=== PATIENT | male | born 1955 | race Caucasian/White ===

== ENCOUNTER → 2021-03-08 16:44 | Outpatient (CLI) | payer OTHER, SELFPAY ==
--- NOTE | ~2021-03-08 | XR_ITS ---
XR wrist LT min 3V DATE: 03/08/2021 17:05 INDICATION: Left wrist pain TECHNIQUE: 4 views COMPARISON: None FINDINGS: No fracture or dislocation, periosteal reaction or bone destruction. Joint spaces are prese rved. No erosive change or chondrocalcinosis. IMPRESSION: Negative Reviewed, dictated and finalized at location A. [facility] IMPRESSION: Negative
== END ==
PROVIDERS: PCP Family Medicine; Visit Provider Nurse Practitioner Family
DX: M25.532 Pain in left wrist (principal)
CPT/HCPCS: 73110

== ENCOUNTER 2021-03-25 11:07 | Outpatient (CLI) | payer OTHER, SELFPAY | END 2021-03-25 11:08 | disposition home or self-care (01) | LOC: ANHAUDASC 11:08 | PROVIDERS: PCP Nurse Practitioner Family; Visit Provider Nurse Practitioner Family | DX: H93.19 Tinnitus, unspecified ear (principal); H90.3 Sensorineural hearing loss, bilateral | CPT/HCPCS: 92557; 92567 ==

== ENCOUNTER 2021-04-25 09:00 | Outpatient (RCR) | payer OTHER, SELFPAY | END 2021-07-02 23:59 | disposition home or self-care (01) | LOC: ANHAUDASC 09:00 | PROVIDERS: PCP Nurse Practitioner Family; Visit Provider Nurse Practitioner Family | DX: Z46.1 Encounter for fitting and adjustment of hearing aid (principal) | CPT/HCPCS: 99199; V5261 ==

== ENCOUNTER 2022-08-14 08:35 | Outpatient (CLI) | payer OTHER, SELFPAY ==
[2022-08-14 09:03] LABS: Basophils Percent Auto 0.7 % (0.2-1.2); Eosinophils Absolute Auto 0.2 K/mm3 (0-0.3); Eosinophils Percent Auto 2.8 % (0-4.4); Hematocrit 42.6 % (42.0-52.0); Hemoglobin 13.6 g/dL (14.0-18.0); Immature Granulocyte Absolute 0.01 K/mm3 (0.00-0.031); Immature Granulocyte Percent A 0.2 % (0-0.5); Lymphocytes Absolute Auto 1.36 K/mm3 (0.9-3.2); Lymphocytes Percent Auto 22.7 % (18.3-44.2); Mean Corpuscular HGB Conc 31.9 g/dl (32-36); Mean Corpuscular Hemoglobin 29.2 pg (26-34); Mean Corpuscular Volume 91.6 fl (80-100); Mean Platelet Volume 9.3 fl (7.4-10.4); Monocytes Absolute Auto 0.7 K/mm3 (0.1-0.6); Neutrophils Absolute Auto 3.7 K/mm3 (1.3-6.7); Neutrophils Percent Auto 61.6 % (45.5-73.1); Platelet Count Result 264 k/mm3 (150-375); Red Blood Count 4.65 M/mm3 (4.6-6.20); Red Cell Distribution Width 13.1 % (11.5-14.5)
[2022-08-14 09:23] LABS: Alanine Aminotransferase 29 U/L (6-50); Albumin Level 4.5 g/dL (3.5-5.1); Alkaline Phosphatase 68 U/L (38-126); Aspartate Amino Transferase 30 U/L (17-59); Bilirubin,Total 0.6 mg/dL (0.2-1.3); Cholesterol 103 mg/dL (0-200); HDL Direct 32 mg/dL; Triglycerides 83 mg/dL (<150)
[2022-08-14 09:36] LABS: LDL Cholesterol Direct 48 mg/dL
== END 2022-08-14 08:36 | disposition home or self-care (01) ==
LOC: ANHLAB 08:37
PROVIDERS: PCP Nurse Practitioner Family; Visit Provider Nurse Practitioner Family
DX: G25.81 Restless legs syndrome (principal); E78.5 Hyperlipidemia, unspecified
CPT/HCPCS: 36415; 80061; 80076; 85025

== ENCOUNTER 2023-01-16 10:49 | Outpatient (CLI) | payer OTHER, SELFPAY ==
[2023-01-16 11:16] LABS: Appearance Urine Clear (Clear); Bilirubin Urine Negative (Negative); Blood Urine Negative (Negative); Color Urine Yellow (Yellow); Glucose Urine UA Negative (Negative); Ketones Urine Negative (Negative); Leukocyte Esterase Ur Negative LEU/UL (NEGATIVE); Nitrate Urine Negative (Negative); Protein Urine Negative (Negative); Specific Grav Ur 1.018 (1.001-1.035); Urobilinogen Urine 0.2 mg/dL (<2.0)
[2023-01-16 11:32] LABS: Basophils Percent Auto 0.6 % (0.2-1.2); Eosinophils Absolute Auto 0.1 K/mm3 (0-0.3); Eosinophils Percent Auto 1.7 % (0-4.4); Hemoglobin 11.3 g/dL (14.0-18.0); Immature Granulocyte Absolute 0.02 K/mm3 (0.00-0.031); Immature Granulocyte Percent A 0.3 % (0-0.5); Lymphocytes Absolute Auto 1.24 K/mm3 (0.9-3.2); Lymphocytes Percent Auto 17.5 % (18.3-44.2); Mean Corpuscular HGB Conc 29.7 g/dl (32-36); Mean Corpuscular Hemoglobin 25.7 pg (26-34); Mean Corpuscular Volume 86.4 fl (80-100); Mean Platelet Volume 9.2 fl (7.4-10.4); Monocytes Absolute Auto 0.7 K/mm3 (0.1-0.6); Monocytes Percent Auto 10.4 % (2.6-8.5); Neutrophils Absolute Auto 4.9 K/mm3 (1.3-6.7); Neutrophils Percent Auto 69.5 % (45.5-73.1); Platelet Count Result 293 k/mm3 (150-375); Red Cell Distribution Width 14.6 % (11.5-14.5); White Blood Count 7.1 K/mm3 (4.5-10.0)
[2023-01-16 11:41] LABS: Add Urine Microscopic? NO
[2023-01-16 11:45] LABS: Alanine Aminotransferase 38 U/L (6-50); Albumin Level 4.3 g/dL (3.5-5.1); Alkaline Phosphatase 74 U/L (38-126); Anion Gap 9 mmol/L (8-16); Aspartate Amino Transferase 32 U/L (17-59); Bilirubin,Total 0.4 mg/dL (0.2-1.3); Blood Urea Nitrogen 23 mg/dL (9-20); Carbon Dioxide 25 mmol/L (22-30); Chloride 105 mmol/L (98-107); Cholesterol 112 mg/dL (0-200); Estimated Glomerular Filt Rate > 60; Glucose 106 mg/dL (65-110); HDL Direct 33 mg/dL; Potassium 4.3 mmol/L (3.4-5.0); Sodium 139 mmol/L (137-145); Triglycerides 93 mg/dL (<150)
[2023-01-16 11:56] LABS: LDL Cholesterol Direct 62 mg/dL
[2023-01-16 12:06] LABS: Iron 44 ug/dL (49-181)
[2023-01-16 12:16] LABS: Percent Iron Saturation 10 % (20-50)
[2023-01-16 12:42] LABS: Ferritin 7.34 ng/mL (11.1-264)
[2023-01-16 12:49] LABS: Folic Acid 18.5 ng/mL (2.76->20)
== END 2023-01-16 10:50 | disposition home or self-care (01) ==
LOC: ANHLAB 10:51
PROVIDERS: PCP Nurse Practitioner Family; Visit Provider Nurse Practitioner Family
DX: D64.9 Anemia, unspecified (principal); E78.5 Hyperlipidemia, unspecified; Z12.5 Encounter for screening for malignant neoplasm of prostate
CPT/HCPCS: 36415; 80048; 80061; 80076; 81003; 82607; 82728; 82746; 83540; 83550; 84153; 84443; 85025; G0103

== ENCOUNTER 2023-02-13 01:31 | Day surgery (SDC) | payer OTHER, SELFPAY ==
[2023-02-04 11:44] VITALS: BMI 26.6
--- NOTE | 2023-02-12 18:22 | PM.HPGS ---
History of Present Illness History of Present Illness Consent: Risks, benefits, and alternatives have been discussed and questions answered. Patient agrees to proceed with procedure. Chief complaint: HX colon polyps, iron deficiency anemia Narrative: uLis E Yu III is a 68 year old male ? who was referred to office per Isaiah Saucedo for evaluation of iron deficiency anemia noted on routine labs.? Hemoglobin in August 2022 to be slightly low at 13.6. Labs along with iron studies were rechecked this January. hemoglobin trending downward from 13.6-> 11.3. Hct low at 38. MCV WNLs. Ferritin low at 7.34, iron saturations low at 10%, iron level low at 44. He also has had polyps removed on a couple of occasions, most recently 6 years ago. Review of Systems Review of Systems: All systems reviewed & are unremarkable except as noted in HPI and below PMFSH Past Medical History Medical History Anemia BMI 26.0-26.9,adult BMI 27.0-27.9,adult Colon cancer screening Cologuard screening on 08/20/2022 was negative with recheck in 3 years. Encounter to establish care Hard of hearing History of colon polyps Hyperlipidemia CAMACHO (iron deficiency anemia) Indigestion Nocturia Skin lesion of scalp SLAC (scapholunate advanced collapse) of wrist Tinnitus Wellness examination Wrist pain, left Surgical History Surgical History History of hernia repair 2007 History of resection of large bowel 2014- 12 inches removed Social History Social History Smoking status: Never smoker Alcohol intake: current Drinks per week: 1 Substance use: never Substance use type: does not use Living arrangements: with family Occupation/Education: retired Gender identity (if verbalized by the patient): Male Sexual Orientation (if Verbalized by the Patient): Straight or Heterosexual Spiritual care concerns: No Agree to blood products: Yes Meds Home Medications and Allergies Home Medications Medication Instructions Recorded Confirmed Type multivitamin 1 tablet PO DAILY 03/08/21 02/13/23 History omeprazole 20 mg capsule,delayed 20 mg PO DAILY #90 caps 08/06/22 02/13/23 Rx release atorvastatin 10 mg tablet 10 mg PO DAILY #90 tabs 08/29/22 02/13/23 Rx pramipexole 0.5 mg tablet (Mirapex) 0.5 mg PO QHS #30 tabs 10/06/22 02/13/23 Rx Allergies Allergy/AdvReac Type Severity Reaction Status Date / Time No Known Allergies Allergy Verified 02/13/23 08:47 Exam Const: General: alert Orientation/consciousness: patient oriented x3 Resp: Auscultation: clear to auscultation bilaterally Cardio: Rhythm: regular rhythm GI: GI Palp: Yes Soft to palpation and No Tenderness to palpation present (GI) Neuro: General: patient oriented x3 Assessment and Plan Assessment and plan (1) CAMACHO (iron deficiency anemia): Code(s): D50.9 - Iron deficiency anemia, unspecified Status: Acute Assessment and Plan: EGD with possible biopsy or dilatation or cautery.Colonoscopy with possible biopsy or polypectomy or cautery or injection of substances.
[2023-02-13 08:49] VITALS: BP 129/89; PULSE 88; RESP 18; TEMP 36.1; O2SAT 100
[2023-02-13] MEDS: LACTATED RINGERS 1,000 ML 150 ML IV CONT (08:52)
--- NOTE | 2023-02-13 09:37 | WPDANESEPPF ---
Anes - Initial Pre Proc Eval Procedure: Operation Date: 02/13/23 10:00 Proposed Procedures p Esophagogastroduodenoscopy & Colonoscopy - Bruno Vasquez MD Date/Time: 02/13/23 09:37 Surgeon: Bruno Vasquez MD Pre Op Diagnosis: HX colon polyps, iron deficiency anemia Patient Data Age: 68 Gender: M Height: 1.68 m Weight: 69.7 kg Last Vital Signs Temp 97 F L 02/13/23 08:49 Pulse 88 02/13/23 08:49 Resp 18 02/13/23 08:49 BP 129/89 02/13/23 08:49 Pulse Ox 100 02/13/23 08:49 O2 Del Method Room Air 02/13/23 08:49 Allergies Allergy/AdvReac Type Severity Reaction Status Date / Time No Known Allergies Allergy Verified 02/13/23 08:47 Home Medications Medication Instructions Recorded Confirmed Type multivitamin 1 tablet PO DAILY 03/08/21 02/13/23 History omeprazole 20 mg capsule,delayed 20 mg PO DAILY #90 caps 08/06/22 02/13/23 Rx release atorvastatin 10 mg tablet 10 mg PO DAILY #90 tabs 08/29/22 02/13/23 Rx pramipexole 0.5 mg tablet (Mirapex) 0.5 mg PO QHS #30 tabs 10/06/22 02/13/23 Rx Patient hx anesthesia problems: none Family hx anesthesia problems: none Results Review: All pre-operative results and documents have been reviewed as part of the pre-operative evaluation. [facility] Past Medical History Medical History Anemia BMI 26.0-26.9,adult BMI 27.0-27.9,adult Colon cancer screening Cologuard screening on 08/20/2022 was negative with recheck in 3 years. Encounter to establish care Hard of hearing History of colon polyps Hyperlipidemia CAMACHO (iron deficiency anemia) Indigestion Nocturia Skin lesion of scalp SLAC (scapholunate advanced collapse) of wrist Tinnitus Wellness examination Wrist pain, left Surgical History Surgical History History of hernia repair 2008 History of resection of large bowel 2014- 12 inches removed Social History Social History Smoking status: Never smoker Alcohol intake: current Drinks per week: 1 Substance use: never Substance use type: does not use Living arrangements: with family Occupation/Education: retired Gender identity (if verbalized by the patient): Male Sexual Orientation (if Verbalized by the Patient): Straight or Heterosexual Spiritual care concerns: No Agree to blood products: Yes Anes - Eval Final PreProcedure Day of Procedure 02/13/23 09:37 Patient weight: normal Heart: regular rate and rhythm Lungs: clear to auscultation Airway: Mallampati scale class II Neurological: alert and oriented Last oral intake: >/= 8 hours ASA classification: II Emergent: no Anesthetic plan: proceed Anesthesia type and monitoring: general GIVS and standard monitoring Results Review: All pre-operative results and documents have been reviewed as part of the pre-operative evaluation. Informed Consent: The patient's anesthetic plan and its attendant risks and benefits were discussed with the patient/family/POA. Questions were solicited and answers provided to the satisfaction of the patient/family/POA.
--- NOTE | 2023-02-13 10:18 | SUR.OPER ---
EGD: [id number] COLON: Start 1016
[2023-02-13 10:31] VITALS: BP 99/67; PULSE 84; RESP 18; O2SAT 96
[2023-02-13 10:41] VITALS: BP 103/73; PULSE 89; RESP 18; O2SAT 99
[2023-02-13 10:51] VITALS: BP 112/78; PULSE 79; RESP 16; O2SAT 97
== END 2023-02-13 11:10 | disposition home or self-care (01) ==
PROVIDERS: PCP Nurse Practitioner Family; Visit Provider Internal Medicine Gastroenterology
PROC: 0DJ08ZZ Inspection of Upper Intestinal Tract, Via Natural or Artificial Opening Endoscopic (ICD-10-PCS; CPT 43235; principal; 2023-02-13 10:00)
DX: D50.9 Iron deficiency anemia, unspecified (principal); D12.8 Benign neoplasm of rectum; Z98.0 Intestinal bypass and anastomosis status; Z90.49 Acquired absence of other specified parts of digestive tract; K21.9 Gastro-esophageal reflux disease without esophagitis; K44.9 Diaphragmatic hernia without obstruction or gangrene; E78.5 Hyperlipidemia, unspecified
CPT/HCPCS: 45381; 45385; 43239; 88305; J2001; J2704; J7120